=== PATIENT | male | born 2005 | race Caucasian/White ===

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

== ENCOUNTER 2025-06-22 10:30 | Outpatient (CLI) | payer BC, SELFPAY | END 2025-06-22 10:31 | disposition home or self-care (01) | LOC: AMB 07-03 17:40 | PROVIDERS: PCP Pediatrics; Visit Provider Family Medicine | DX: R56.9 Unspecified convulsions (principal); F14.10 Cocaine abuse, uncomplicated | CPT/HCPCS: A0425; A0427 ==

== ENCOUNTER 2025-06-22 11:04 | Emergency (ER) | payer BC, SELFPAY ==
[2025-06-22] VITALS (33 sets, daily range): BP systolic 115–148; BP diastolic 57–88; PULSE 68–120; RESP 11–24; TEMP 36.2; O2SAT 95–100; BMI 23.1
--- OUTSIDE RECORDS SUMMARY | 2025-06-22 11:06 | XMS_ITS | Clinical Summary ---
Author Organization [employer] [facility] Address [address] [place] [id number] Care Team Providers Care Corporate Operations Compliance Manager Name Role Phone Loren Rock MD Primary Care Provi jocelyne Allergies No known active allergies Medications dextroamphetamine -amphetamine (Adderall XR) 20 mg Extended-Release capsuleIndication s:ADHD (attention deficit hyperactivity disorder), combined type Take 1 Capsule (20 mg) by mouth once daily. 30 Capsule 2 Active meloxicam (MOBIC) 7.5 mg tabletIndications :Back pain without radiation,Hip pain, left Take 1 Tablet (7.5 mg) by mouth once daily. 30 Tablet 2 Active methylPREDNISolon e (Medrol, Nadeem,) 4 mg tabletIndications :Lumbar radiculopathy Take by mouth as instructed per packaging. 21 Tablet 2 Active Active Problems Problem Noted Date Diagnosed Date Bee sting allergy 02/05/2014 ADHD (attention deficit hype ractivity disorder), combined type 10/18/2012 Immunizations Immunization Administration Dates Next Due COVID-19 vaccine ([employer] 30mcg/0.3mL) OSCAR PINZON 01/14/2021,12/11/2020 DTaP 03/25/2010,2004,2004 LHvQ-AeuP-QAL (Pediarix) 2004 HIB PRP-OMP (PedvaxHIB) 2004,2004 HPV 9 (Gardasil 9) 01/09/2018,04/10/2017 Hepatitis A (Peds) 04/10/2017,03/30/2016 Hepatitis B (Adult) 2004,2004 Hepatitis B (Peds) 2004,2004, 004 Inactivated Polio Vaccine 03/25/2010,05/2005,2004,07/22 Influenza, IIV3 (Age 6-35 mos) 06/10/2005 Influenza, IIV3 (Age >=3 years) 06/10/2005 Influenza, IIV4 05/26/2020,09/12/2017 Influenza,LAIV3 Live Intrana yajaira (Flumist) 08/23/2012 Influenza,LAIV4 Live Intrana yajaira (Flumist) 08/23/2012,08/23/2012 MENINGOCOCCAL VACCINE 2 VIAL [id number] (MENVEO) 03/15/2022,03/30/2016 MMR 03/25/2010,06/10/2005 Pneumococcal conj 13-Valent (Prevnar 13) 2004,2004,2004 Pneumococcal conj 7-Valent (Prevnar 7) 5,2004,2004 Tdap 03/30/2016 Varicella Vaccine 03/25/2010,06/10/2005 Family History Medical History Relation Name Comments Good Health Father Hyperlipidemia Maternal Grandmother Psychiatric illness Mother ADHD Asthma No Family History Heart Disease No Family History Relation Name Status Comments Father Alive Maternal Grandmother Mother Alive Social History Tobacco Use Types Packs/Day Years Used Date Smoking Tobacco: Never Smokeless Tobacco: Never Tobacco Cessation:Counseling Given: Yes Comments:No exposure Alcohol Use Standard Drinks/Week Comments No 0 (1 standard drink = 0.6 oz pur e alcohol) PHQ-2 Answer Date Recorded PHQ-2 TOTAL SCORE 0 07/11/2022 Social Connections Answer Date Recorded Frequency of Communication with Friends and Fami ly Not on file 02/27/2023 Financial Resource Strain Answer Date R ecorded Difficulty of Paying Living Expenses 3 02/25/2022 Difficulty of Paying Living Expenses Not on file 02/25/2022 Food Insecurity Answer Date Recorded Worried About Running Out of Food in the Last Ye ar 1 02/25/2022 Transportation Needs Answer Date Record ed Lack of Transportation (Medical) 1 02/25/2022 Housing Stability Answer Date Recorded Unable to Pay for Housing in the Last Year 1 02/25/2022 Sex and Gender Information Value Date Recorded Sex Assigned at Not on file 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 Gender Identity Not on file Sexual Orientation Not on file Obstetrics History Last Filed Vital Signs Vital Sign Reading Time Taken Comments Blood Pressure 118/77 05/04/2022 3:08 PM CDT Pulse 72 05/04/2022 3:08 PM CDT Temperature 36.6 C (97.9 F) 05/04/2022 3:08 PM CDT Respiratory Rate - - Oxygen Saturation 99% 05/04/2022 3:08 PM CDT Inhaled Oxygen Concentration - - Weight 70.2 kg (154 lb 12.8 oz) 05/04/2022 3:08 PM CDT Height 183.8 cm (6' 0.36) 05/04/2022 3:08 PM CD T Body Mass Index 20.79 05/04/2022 3:08 PM CDT Plan of Treatment Health Maintenance Due Date Last Done Comments BMI (ht and wt on same day) for age 18+ 2022 Hepatitis C screening for age 18-79 2022 Depression screening for age 12+ 07/11/2023 07/11/2022, 06/27/2022, 03/29/2022, Additional history exists Influenza Vaccine (#1) 2025 , 09/12/2017, 08/23/2012, Additional history exists Tetanus booster 03/30/2026 03/30/2016 RSV vaccine for adults or (1 - 1-dose 75+ series) 2079 Hepatitis B series for 19+ Completed 12/21, 2004, 2004, Additional history exists Pneumococcal series for age 6-49 Aged Out 2004, 2004, 2004, Additional history exists No longer eligible based on patient's age to complete this topic HPV series for age 9-45 Completed 01/09/2018, 04/10 Meningococcal series for age 11-21 Completed 03/15/2022, 03/30/2016 HIV for age 15-65 Completed 03/29/2022 Procedures Procedure Name Priority Date/Time Associated Diagnosis Comments ANTI HIV 1/2 Routine 03/29/2022 11:46 AM CDT Screening for HIV (human immunodeficiency virus) from Last 3 Months or Most Recently Relevant to Health Maintenance Results * ANTI HIV 1/2 [42121.0] (03/29/2022 11:46 AM CDT) HIV-1/HIV-2 ANTIBODY Non-Reacti ve Non-Reacti ve 03/30/2022 5:16 AM CDT [facility] Comment:HIV-1 p24 and HIV-1/ HIV-2 Ab not detected. Blood BLOOD SPECIMEN / Unknown Venipuncture / Unknown 03/29/2022 11:46 AM CDT 03/29/2022 11:46 AM CDT us Daryl Salamanca DO SEND OUTS Final Result [facility] [address] [place] [address], from Last 3 Months or Most Recently Relevant to Health Maintenance Insurance [facility] [place] [address] [place] [address] Care Teams Corporate Operations Compliance Manager Relationship Specialty Start Date End Date Loren Rock MD [address] [place] [address] PCP - General Pediatric 09/10/13
--- NOTE | 2025-06-22 11:13 | ED_ITS ---
HPI - General Adult General Time Seen by Provider: 11:13 Date Seen: 06/22/25 Chief complaint: Alcohol/Intoxication Stated complaint: DRUGS Time Seen by Provider: 06/22/25 11:05 Source: patient, family and RN notes reviewed Mode of arrival: ambulatory Limitations: no limitations History of Present Illness HPI narrative: This 20-year-old male is brought in by EMS from home. His mom reportedly called EMS. Patient states he was on the ground, laying on the floor. He states he was feeling funny. He probably did cocaine 3 or 4 times overnight from 2:00 a.m. to sometime with the last lying being used maybe at 7:45 a.m.. His memory is a little fuzzy on the details. He does not think he drank after bar close. They went to a club. He did not start using cocaine until after bar close. He has had some marijuana as well. He could not sleep, was feeling funny. Bradley like his heart was racing, had a brief sense of some chest discomfort and the sense that his left arm was feeling like it might go number tingly. He never lost use of his arm. EMS did give him 2.5 mg IV Valium. He notes no visual changes, no hallucinations, no headache. He is having no numbness tingling weakness anywhere. When he was feeling like his heart was pounding out of his chest with the brief episode of a little chest pressure, he felt a little short of breath with that. All of those symptoms have resolved. No gastrointestinal symptoms. He has used cocaine couple times prior. He snorted the cocaine, no injection. He has never done any IV injectable illicit drugs. His parents are here in the lobby, they are not aware of his cocaine use. We had a cullen discussion about this being private information but concerns for his parents having significant questions regarding his care and time here. Patient has ultimately decided to talk to his parents himself. I specifically reviewed with him that I would not be able to say anything to his parents about his care or his situation if he opted to not tell them, I would abide his patient confidentiality. I did advise him that they may see records or diagnoses based on billing, I cannot give him 100% sure of the that they might not find out in other ways. He is ultimately made the decision to talk to his parents himself, I will follow patient's directive when it comes to his parents knowledge of his care. Patient does state he just feels cold here, he has had no cold exposure overnight. They were never outside. Related Data Home Medications ?Medication ?Instructions ?Recorded ?Confirmed No Known Home Medications 07/08/2306/15 Allergies Allergy/AdvReac Type Severity Reaction Status Date / Time No Known Drug Allergies Allergy Verified 07/08/23 15:32 Review of Systems Status of ROS: Reports: 6 or more systems reviewed and unremarkable except as noted in History and below PFSH PFSH Social History Smoking Status: Current every day smoker Do you use any of these nicotine containing products: E-Cigarettes and Vaping Products Second hand tobacco smoke exposure: No How often do you have a drink containing alcohol: monthly or less How many standard drinks containing alcohol do you have on a typical day: 7 to 9 How often do you have six or more drinks on one occasion: Monthly AUDIT-C Alcohol total score: 6 Non-prescribed substance use: marijuana (any form) and crack/cocaine Exam Const: Vital Signs, click to edit/add: Vital Signs - 24 hr 06/22/25 11:07 06/22/25 11:17 06/22/25 11:30 Temperature 97.1 F L Pulse Rate 116 H Pulse Rate [Pulse Oximeter] 111 H Respiratory Rate 16 17 Blood Pressure Blood Pressure [Ri ght Upper Arm] 148/88 H Pulse Oximetry 100 100 Oxygen Delivery Me thod Room Air 06/22/25 11:32 06/22/25 11:33 06/22/25 11:45 Temperature Pulse Rate 120 H 119 H 116 H Pulse Rate [Pulse Oximeter] Respiratory Rate 15 17 11 L Blood Pressure 131/62 Blood Pressure [Ri ght Upper Arm] Pulse Oximetry 100 100 100 Oxygen Delivery Me thod 06/22/25 12:00 06/22/25 12:02 06/22/25 12:15 Temperature Pulse Rate 109 H 111 H 117 H Pulse Rate [Pulse Oximeter] Respiratory Rate 17 Blood Pressure 135/68 Blood Pressure [Ri ght Upper Arm] Pulse Oximetry 100 100 100 Oxygen Delivery Me thod 06/22/25 12:30 06/22/25 12:33 06/22/25 12:45 Temperature Pulse Rate 104 H 108 H 94 Pulse Rate [Pulse Oximeter] Respiratory Rate 12 24 11 L Blood Pressure 122/74 Blood Pressure [Ri ght Upper Arm] Pulse Oximetry 97 100 99 Oxygen Delivery Me thod 06/22/25 13:00 06/22/25 13:02 06/22/25 13:15 Temperature Pulse Rate 89 93 74 Pulse Rate [Pulse Oximeter] Respiratory Rate 16 17 15 Blood Pressure 128/71 Blood Pressure [Ri ght Upper Arm] Pulse Oximetry 98 98 95 Oxygen Delivery Me thod 06/22/25 13:30 06/22/25 13:32 06/22/25 13:45 Temperature Pulse Rate 88 84 75 Pulse Rate [Pulse Oximeter] Respiratory Rate 16 17 15 Blood Pressure 129/68 Blood Pressure [Ri ght Upper Arm] Pulse Oximetry 97 97 96 Oxygen Delivery Me thod 06/22/25 14:00 06/22/25 14:02 06/22/25 14:15 Temperature Pulse Rate 75 75 101 H Pulse Rate [Pulse Oximeter] Respiratory Rate 13 13 21 Blood Pressure 124/64 Blood Pressure [Ri ght Upper Arm] Pulse Oximetry 95 96 97 Oxygen Delivery Me thod 06/22/25 14:30 06/22/25 14:33 06/22/25 14:45 Temperature Pulse Rate 77 86 78 Pulse Rate [Pulse Oximeter] Respiratory Rate 14 15 14 Blood Pressure 123/70 Blood Pressure [Ri ght Upper Arm] Pulse Oximetry 97 98 96 Oxygen Delivery Me thod 06/22/25 15:00 06/22/25 15:02 06/22/25 15:03 Temperature Pulse Rate 68 73 95 Pulse Rate [Pulse Oximeter] Respiratory Rate 13 14 14 Blood Pressure 121/67 Blood Pressure [Ri ght Upper Arm] Pulse Oximetry 96 96 95 Oxygen Delivery Me thod 06/22/25 15:15 06/22/25 15:30 06/22/25 15:33 Temperature Pulse Rate 68 90 81 Pulse Rate [Pulse Oximeter] Respiratory Rate 14 23 14 Blood Pressure 119/67 Blood Pressure [Ri ght Upper Arm] Pulse Oximetry 96 95 97 Oxygen Delivery Me thod 06/22/25 15:45 06/22/25 16:00 06/22/25 16:02 Temperature Pulse Rate 74 74 71 Pulse Rate [Pulse Oximeter] Respiratory Rate 15 15 14 Blood Pressure 115/57 L Blood Pressure [Ri ght Upper Arm] Pulse Oximetry 97 96 96 Oxygen Delivery Me thod This 20-year-old male is alert, interactive, no apparent distress, seen in exam room 6. He sitting up on the bed. He is mildly hypertensive and tachycardic with an apparent sinus tachycardia on his rhythm on the monitor. Pupils are equal round, sclera slightly injected but no drainage from his eyes, no periorbital erythema or swelling. Symmetrical facial function, speech normal. Denies hallucinations. Neck supple, no jugular venous distension. He sits up easily, lungs are clear, good air entry, wheeze or crackles, no tachypnea, no accessory muscle use. CV is fast but regular, no murmur, normal S1-S2. Abdomen is soft, nontender, nondistended, no organomegaly, no rebound or guarding. He has normal symmetrical function in his upper and lower extremities, no tremors, normal light touch sensation throughout. Cap refill is good. Note no focal neurologic deficits on his exam. Documenting provider has reviewed patient's vital signs: yes Course Course ED Course: EMS had started patient on 500 mL normal saline, this is almost done. Will order another L of IV fluids. He really outside of the mild physiologic symptoms from the cocaine use with the tachycardia and hypertension is otherwise asymptomatic. He also endorses insomnia and not being able to sleep. Would anticipate that the effects of the cocaine will be starting to wear off over the next few hours. Will continue to monitor him on cardiac monitoring, obtain EKG. Will do some baseline labs. Will also do a portable chest x-ray to ensure no pathology but doubt anything like a pneumothorax at this time given his current clinical status. Reevaluation(s) Time of Reevaluation #1: 12:18 Reevaluation #1: Nursing staff reports to me that patient is feeling much better. Did go back in to talk to the patient, his mom is present now. He does give me permission to talk freely. We talked about cocaine use, it is physiologic affects. Mom was able to tell me more history. Mom heard a thud, came in to see her son on the ground in tonic clonic posturing with seizure activity, lips were blue. It seemed like it probably lasted a couple minutes. She was able to roll him on his side and then seem to breathe better. This may explain some of patient's confusion. He had told 1 nurse that he last used cocaine around 4:00 a.m., another 1 between 7-8 a.m., me at 7:45 a.m.. Mom notes that he did drive his fr [place]ends [place], did drive this morning. Time of Reevaluation #2: 13:05 Reevaluation #2: Reviewed my conversation with Nando. Patient's heart rate is below 100 now, blood pressure is systolic 120. He will be monitored for 6 hours. I will let them know the formal reading of the head CT, have not seen it yet. Mom had questions about follow-up, treatment, counseling. We discussed following up with primary care, can talk to their insurance about treatment options, would recommend talking to his insurance to see coverage. There our psychologists, therapist that do specialize in addiction and substance abuse. They certainly could work to find someone for him for therapy in this field. Time of Reevaluation #3: 13:45 Reevaluation #3: Updated that head CT is normal, provided copy of the report. Patient has been able to rest and get some sleep in the interim. Additional Reevaluation(s): 4:52 p.m.: Consultations Consultation #1: Spoke with Nando regarding this patient. He would recommend observing for 6 hours, if no concerning symptoms, no recurrent seizures, can discharge. He does agree with getting a head CT given the patient probably did fall to the ground. He is not having any headache, no neurologic changes. He does not know the answer to the question about driving given he had a seizure but was provoked. Patient has not had a history of seizures prior. Time: 12:30 Consultation #2: Spoke with neurologist Dr. Malhotra from [facility]. He states the driving. Holds for any seizure, patient is not to drive for 3 months. This holds true in both [place] and [place]. This is considered a provoked seizure and thus would not start any medicines which certainly I did not plan to. He does recommend that this patient follow-up with Neurology outpatient non emergently and have EEG an MR imaging done just to ensure that he has no underlying potential for seizures that were potentially unmasked from the cocaine use. Time: 14:27 Consultation #3: Have spoken with patient and his parents. He has had no recurrence of symptoms, his vital signs have normalized and he is feeling much better. We discussed the importance of abstinence from cocaine for him, highly encourage him to minimize alcohol use. Plan will be to discharge to home, have reviewed the outpatient neurology recommendations and the no driving for 3 months due to his seizure. Vital Signs Vital signs: Initial Vital Signs Temperature 97.1 F L 06/22/25 11:07 Temperature Source Temporal Artery Scan 06/22/25 11:07 Pulse Rate 111 H 06/22/25 11:07 Respiratory Rate 16 06/22/25 11:07 Blood Pressure 148/88 H 06/22/25 11:07 Blood Pressure Mean 108 H 06/22/25 11:07 Blood Pressure Position Supine 06/22/25 11:07 Pulse Oximetry 100 06/22/25 11:07 Oxygen Delivery Method Room Air 06/22/25 11:07 Vital Signs Temperature 97.1 F L 06/22/25 11:07 Pulse Rate 111 H 06/22/25 11:07 Respiratory Rate 16 06/22/25 11:07 Blood Pressure 148/88 H 06/22/25 11:07 Pulse Oximetry 100 06/22/25 11:07 Oxygen Delivery Method Room Air 06/22/25 11:07 Temperature 97.1 F L 06/22/25 11:07 Pulse Rate 71 06/22/25 16:02 Respiratory Rate 14 06/22/25 16:02 Blood Pressure 115/57 L 06/22/25 16:02 Pulse Oximetry 96 06/22/25 16:02 Oxygen Delivery Method Room Air 06/22/25 11:07 Medications Administered Medications: Discontinued Medications Generic Name Dose Route Start Last Admin Trade Name Freq PRN Reason Stop Dose Admin Sodium Chloride 1,000 mls @ 1,000 mls/hr 06/22/25 11:30 06/22/25 12:28 0.9 % Sodium Chloride 1000 Ml IV 06/22/25 12:29 Infused .Q1H AVTAR Infusion Medical Decision Making Lab Data Lab results reviewed: Yes I reviewed the patient's lab results Labs: Lab Results 06/22/25 06/22/25 Range/Units 11:29 11:35 WBC 8.11 (4.50-11.00) K/uL RBC 5.33 (4.30-5.90) m/uL Hgb 15.6 (13.5-17.5) gm/dL Hct 45.8 (37.0-53.0) % MCV 86 (80-100) fL MCH 29 (26-34) pg MCHC 34 (32-36) gm/dL RDW Coeff of Kortney 12.2 (11.5-15.5) % Plt Count 260 (140-440) K/uL Neut % (Auto) 75.2 H (42.0-72.0) % Lymph % (Auto) 13.8 L (20-44) % Calloway % (Auto) 9.7 (0.0-11.0) % Eos % (Auto) 0.4 (0.0-7.0) % Baso % (Auto) 0.5 (0.0-3.0) % Neut # (Auto) 6.10 (1.7-7.0) K/uL Lymph # (Auto) 1.10 (0.90-2.90) K/uL Calloway # (Auto) 0.80 (0.00-0.90) K/UL Eos # (Auto) 0.03 (0.00-0.50) K/uL Baso # (Auto) 0.04 (0.00-0.30) K/uL Abs Immat Gran (auto) 0.03 (0.00-0.30) K/uL Imm/Tot Granulo (auto) 0.4 % Sodium 134 L (135-149) mmol/L Potassium 3.8 (3.6-5.1) mmol/L Chloride 96 (96-114) mmol/L Carbon Dioxide 17 L (20-32) mmol/L Anion Gap 21 H (7-15) mEq/L BUN 10 (5-24) mg/dL Creatinine 0.9 (0.5-1.5) mg/dL Estimated Creat Clear 145.77 Estimated GFR 125 ml/min Glucose 126 H (60-115) mg/dL Calcium 9.1 (8.4-10.6) mg/dL Total Creatine Kinase 73 (54-186) U/L POC Troponin I 0.00 L (0.01-0.04) ng/ml Imaging Data Chest x-ray: Attestation: I have reviewed the pertinent imaging results. My impression: Do not appreciate any acute pathology, certainly no pneumothorax on my prelim inary review. Radiologist's impression: Patient: RADHA MCNEAL Facility:[facility] Patient ID:?[id number] Site Patient ID:?[id number]. Site :?2004 Study:?XRay-Chest 1v Portable CXR-06/22/2025 11:45:40 AM Ordering Physician:Maurisio Vaughn Final Report: INDICATION: Shortness of breath. FINDINGS: Two portable chest x-rays show a normal cardiac silhouette. The lungs show no focal pulmonary opacities. No pneumothorax. IMPRESSION: 1. No focal pulmonary opacities. No pneumothorax. Dictated by Benny Marte MD @ 06/22/2025 12:58:33 PM Dictated by: Benny Marte MD @ 06/22/2025 12:58:54 (Electronic Signature) CT scan - head: Attestation: I have reviewed the pertinent imaging results. Radiologist's impression: Patient: RADHA MCNEAL Facility:?[facility] Patient ID:?[id number] Site Patient ID:?[id number]. Site :?2004 Study:?CT-Head CT HEAD W/O-06/22/2025 12:58:49 PM Ordering Physician:?Jesus Vaughn Final Report: INDICATION: Seizures. Cocaine use. TECHNIQUE: CT of the head without contrast. Coronal and sagittal reformats are included. COMPARISON: None. FINDINGS: No CT evidence of acute cortical infarct. No loss of irizarry white matter differentiation. No hyperdense vessels to suggest intracranial thrombus. No acute intracranial hemorrhage. No mass effect or midline shift. No hydrocephalus or extra-axial collections. White matter is within normal limits for age. No acute osseous abnormalities. Mastoid air cells and paranasal sinuses are clear. Normal soft tissues. IMPRESSION: IMPRESSION:1. No CT evidence of acute cortical infarct. No acute intracranial hemorrhage. No other acute intracranial findings. Please note that all CT scans at this facility use dose modulation, iterative reconstruction, and/or weight-based dosing when appropriate to reduce radiation dose to as low as reasonably achievable. Dictated by Alexy Wise MD @ 06/22/2025 1:09:00 PM (Electronic Signature) ECG Data Attestation: I personally reviewed and interpreted this ECG as follows: (Sinus tachycardia, 116 beats per minute. No ischemic change noted. QT corrected is at 469 milliseconds.) Prior ECG tracings: not available for review Discharge Plan Discharge Clinical Impression: Cocaine use, Seizure Patient Disposition: Home, Self-Care Condition: Stable Instructions: Cocaine Use Disorder (ED), Nonepileptic Seizures (ED) Additional Instructions: I think it is imperative that you not use cocaine again. You are obviously at risk of seizures from cocaine use. Can explore consulting a therapist specializing in substance use disorders outpatient, can work through clinic to help you get this arranged. Per neurology, you are not to drive for 3 months from this episode. This is a state law. It is recommended that you seek neurology follow-up in clinic, can get a referral through primary care. You should have an outpatient MRI and EEG done with Neurology at some point just to ensure that you do not have any underlying propensity or abnormality in the brain that does put you at risk for subsequent seizures. Use still should always avoid cocaine as we do know that this has caused you to have a seizure. Activity Level: Activity as Tolerated Prescriptions: No Action No Known Home Medications Follow Up/Referrals: Loren Rock MD [Primary Care Provider, Pediatrics] Stand Alone Forms: [employer] Info Instructions
--- NOTE | 2025-06-22 11:29 | CRLHL7_ITS ---
For Patients: As a result of the Cures Act, medical imaging exams and procedure reports are released immediately into your electronic medical record. You may view this report before your referring provider. If you have questions, please contact your health care provider. INDICATION: Shortness of breath. FINDINGS: Two portable chest x-rays show a normal cardiac silhouette. The lungs show no focal pulmonary opacities. No pneumothorax. IMPRESSION: 1. No focal pulmonary opacities. No pneumothorax. Dictated by Benny Marte MD @ 06/22/2025 12:58:33 PM Dictated by: Benny Marte MD @ 06/22/2025 12:58:54 (Electronically Signed)
[2025-06-22 11:55] LABS: Troponin, Point-of-Care* 0.00 ng/ml (0.01-0.04)
[2025-06-22 11:58] LABS: Chloride* 96 mmol/L (96-114); Hematocrit* 45.8 % (37.0-53.0); Hemoglobin* 15.6 gm/dL (13.5-17.5); Immature Granulocytes Abs Auto 0.03 K/uL (0.00-0.30); Immature Granulocytes Pct Auto 0.4 %; Mean Corpuscular HGB Conc 34 gm/dL (32-36); Mean Corpuscular Hemoglobin 29 pg (26-34); Mean Corpuscular Volume 86 fL (80-100); RDW Coefficient of Variation % 12.2 % (11.5-15.5); Red Blood Count* 5.33 m/uL (4.30-5.90); White Blood Count* 8.11 K/uL (4.50-11.00)
[2025-06-22 11:59] LABS: Potassium* 3.8 mmol/L (3.6-5.1); Sodium* 134 mmol/L (135-149)
[2025-06-22 12:01] LABS: Blood Urea Nitrogen* 10 mg/dL (5-24); Creatinine* 0.9 mg/dL (0.5-1.5); Est. Creatinine Clearance* 145.77; Estimated Glomerular Filt Rate 125 ml/min
[2025-06-22 12:02] LABS: Anion Gap 21 mEq/L (7-15); Calcium* 9.1 mg/dL (8.4-10.6); Carbon Dioxide* 17 mmol/L (20-32); Creatine Kinase* 73 U/L (54-186); Glucose* 126 mg/dL (60-115)
[2025-06-22 12:06] LABS: Lymphocytes Absolute Auto 1.10 K/uL (0.90-2.90); Slide Review Reflex No
--- NOTE | 2025-06-22 12:47 | CRLHL7_ITS ---
For Patients: As a result of the Century Cures Act, medical imaging exams and procedure reports are released immediately into your electronic medical record. You may view this report before your referring provider. If you have questions, please contact your health care provider. INDICATION: Seizures. Cocaine use. TECHNIQUE: CT of the head without contrast. Coronal and sagittal reformats are included. COMPARISON: None. FINDINGS: No CT evidence of acute cortical infarct. No loss of irizarry white matter differentiation. No hyperdense vessels to suggest intracranial thrombus. No acute intracranial hemorrhage. No mass effect or midline shift. No hydrocephalus or extra-axial collections. White matter is within normal limits for age. No acute osseous abnormalities. Mastoid air cells and paranasal sinuses are clear. Normal soft tissues. IMPRESSION: IMPRESSION:1. No CT evidence of acute cortical infarct. No acute intracranial hemorrhage. No other acute intracranial findings. Please note that all CT scans at this facility use dose modulation, iterative reconstruction, and/or weight-based dosing when appropriate to reduce radiation dose to as low as reasonably achievable. Dictated by Alexy Wise MD @ 06/22/2025 1:09:00 PM (Electronically Signed)
== END 2025-06-22 17:14 | disposition home or self-care (01) ==
PROVIDERS: Emergency Provider Family Medicine; PCP Pediatrics
DX: R56.9 Unspecified convulsions (principal); F14.90 Cocaine use, unspecified, uncomplicated
CPT/HCPCS: 36415; 70450; 71045; 80048; 82550; 84484; 85025; 93005; 94761; 96360; 99285; J7030